=== PATIENT | female | born 1980 | race Caucasian/White ===

== ENCOUNTER → 2020-12-04 12:16 | Outpatient (BNVA) | payer SELFPAY | PROVIDERS: Family Provider Family Medicine; Visit Provider Nurse Practitioner Family | DX: J44.9 Chronic obstructive pulmonary disease, unspecified (principal); I10 Essential (primary) hypertension; Z13.6 Encounter for screening for cardiovascular disorders | CPT/HCPCS: 80053; 80061; 82947; 83036 ==

== ENCOUNTER → 2021-08-06 16:49 | Outpatient (BNVA) | payer OTHER, SELFPAY | PROVIDERS: Family Provider Family Medicine; Visit Provider Family Medicine | DX: R05.9 Cough, unspecified (principal); Z20.822 Contact with and (suspected) exposure to COVID-19 | CPT/HCPCS: 87635 ==

== ENCOUNTER → 2021-08-19 11:57 | Outpatient (BNVA) | payer SELFPAY | PROVIDERS: Family Provider Family Medicine; Visit Provider Nurse Practitioner Family | DX: J35.8 Other chronic diseases of tonsils and adenoids (principal); J02.9 Acute pharyngitis, unspecified | CPT/HCPCS: 87070 ==

== ENCOUNTER 2022-01-13 20:23 | Emergency (ER) | payer MEDICAID, SELFPAY ==
[2022-01-13 20:34] VITALS: BP 145/89; PULSE 99; RESP 20; TEMP 36.7; O2SAT 97; BMI 44.8
--- NOTE | 2022-01-13 20:56 | ED_ITS ---
HPI - Allergic Reaction General: Chief complaint: Allergic Reaction Stated complaint: swelling in throat Time Seen by Provider: 01/13/22 20:47 Source: patient Mode of arrival: ambulatory Limitations: no limitations History of Present Illness: HPI narrative: Patient is a 41-year-old female presents to ED today with a complaint of a possible allergic reaction. Patient tells me when she woke this morning she felt like her bottom lip was swollen. She states since then she feels like she has swelling to the inside of her mouth, cheeks, and tongue. She states she is not having any difficulty breathing. She is not having any difficulty speaking, eating, swallowing. Patient has continued to eat and drink normally throughout the day. She feels like the inside of her mouth is itchy and feels like she has hives on her cheeks. She cannot think of anything abnormal that she ate or drink or could have possibly been exposed to. She took Benadryl at around 3pm but didn't notice any results. MD complaint: allergic reaction and facial swelling Onset (ago): hour(s) Exposure: unknown Associated symptoms: Deny abdominal pain, dizziness, nausea or vomiting Severity: mild Treatment prior to arrival: benadryl Previous Allergic Reaction History: none Review of Systems Const: Denies: fever(s), chills, body aches, fatigue or malaise Eyes: Denies: change in vision, blurry vision, blind spots, photophobia, floaters or seeing flashes ENMT: Reports: swelling of lips/tongue; Denies: throat pain, uvular edema, enlarged tonsils, odynophagia, ear or mastoid pain, change in hearing, nasal discharge, nasal congestion, post nasal drip or sinus pain Card: Denies: chest pain, palpitations, lightheadedness, syncope or pre- syncope Resp: Denies: dyspnea, productive cough, wheezing, hemoptysis or chest congestion GI: Denies: abdominal pain, nausea or vomiting Musc: Denies: neck pain, back pain, extremity pain or joint pain Skin/Breast: Denies: rash Neuro: Denies: headache(s), numbness in extremities, weakness in extremities, sensory changes or dizziness PFS ED PFSH: Medical History ADHD Anxiety and depression COPD (chronic obstructive pulmonary disease) Sarcoidosis Surgical History History of repair of ACL Hx of adenoidectomy Hx of tubal ligation Family History Grandmother Cancer Lymphoma Social History Smoking and tobacco status: current every day smoker (vape) Quit status (tobacco): has quit using tobacco Year quit tobacco: 2010 Former quit date comment: smoked PPD x 20 yrs Second hand smoke exposure: No Alcohol intake: never Household members: spouse and children service: No Current occupational status: employed History of recent travel: No Current gender identity: Female Special junito needs: No Agree to transfusion: Yes Physical Exam Const: COMMON NORMALS: no acute distress, patient oriented x3, no limitations and alert GENERAL APPEARANCE: cooperative ORIENTATION/CONSCIOUSNESS: Yes awake, Yes oriented to person, Yes oriented to place and Yes oriented to time HENMT: COMMON NORMALS: normocephalic, atraumatic and Normal external nose present HEAD & SCALP: normal to inspection, normocephalic and atraumatic FACE & SINUS: normal facial exam NOSE: Normal external nose present MOUTH: lip normal, tongue normal (tongue piercing; I don't appreciate any obvious swelling), lip abnormal (minor swelling to lower lip; piercing present), Abnormal oral and palatal mucosa present (a few erythematous lesions to bilateral buccal mucosa) and other (floor of mouth is soft and non-elevated ); no audible dysphonia, no drooling and no muffled voice THROAT: posterior oropharynx normal, tonsils normal and uvula midline; no uvular edema Eye: GENERAL EYE: appearance normal, both eyes and all related structures Neck/C-Spine: COMMON NORMALS: full ROM and no lymphadenopathy GENERAL: Yes normal visual inspection, No anterior neck swelling and No submandibular swelling Resp: COMMON NORMALS: normal respiratory effort and clear to auscultation bilaterally AUSCULTATION: clear to auscultation bilaterally Cardio: COMMON NORMALS: regular rate and regular rhythm RATE: regular rate RHYTHM: regular rhythm Extremity: COMMON NORMALS: normal to inspection Neuro: SEJAL COMA SCALE: document GCS findings Sejal coma scale eye o pening: Spontaneous [place] coma scale verbal response: Orientated Sejal coma scale motor response: Obey commands [place] coma scale total score: 15 COMMON NORMALS: patient oriented x3 and CN's II-XII intact bilaterally SENSORIUM/ORIENTATION: Yes alert, Yes oriented to person, Yes oriented to place and Yes oriented to time Skin: COMMON NORMALS: no rashes or lesions noted GENERAL SKIN EXAM: no rashes or lesions noted Course Vital Signs: Vital signs: Vital Signs Temperature 98.0 F 01/13/22 20:34 Pulse Rate 99 01/13/22 20:34 Respiratory Rate 16 01/13/22 23:00 Blood Pressure 145/89 01/13/22 20:34 Pulse Oximetry 97 01/13/22 20:34 MDM - Allergic Reaction Medical Decision Making On physical exam patient does not have any obvious intraoral/posterior pharynx/tongue swelling. She does have some very mild swelling to her bottom lower lip. Patient is not having any issues speaking or controlling her saliva. She is eating and drinking in the room without difficulty. Patient does not have any induration, crepitus, or swelling to her neck or submandibular regions. The floor of her mouth is soft and non-elevated. At this point I do not have any suspicion for severe angioedema, airway compromise, Turner's angina/deep space neck infection, [employer], retropharyngeal abscess, or any other emergent complaint at this time. Strict return to ED precautions were verbally given to patient along with her partner who both verbalized understanding. Discharge Plan Discharge Patient Disposition: Home Clinical Impression: Allergic reaction Qualifiers: Encounter type: initial encounter Qualified Code(s): T78.40XA - Allergy, unspecified, initial encounter Condition: Stable Prescriptions: No Action fluticasone propion-salmeterol [Advair Diskus] 500-50 mcg/dose blister with device See Rx Instructions .ROUTE .COMPLEX Qty: 60 3RF Dose Instruction: INHALE 1 PUFF BY MOUTH EVERY TWELVE HOURS Rx Instructions: INHALE 1 PUFF BY MOUTH EVERY TWELVE HOURS albuterol sulfate [ProAir HFA] 90 mcg/actuation HFA aerosol inhaler See Rx Instructions .ROUTE .COMPLEX Qty: 8.5 3RF Dose Instruction: INHALE TWO PUFFS BY MOUTH EVERY 6 HOURS NEEDED SHORTNESS OF BREATH OR wheezing. Rx Instructions: INHALE TWO PUFFS BY MOUTH EVERY 6 HOURS NEEDED SHORTNESS OF BREATH OR wheezing. furosemide 20 mg tablet See Rx Instructions .ROUTE .COMPLEX Qty: 30 3RF Dose Instruction: TAKE ONE TABLET BY MOUTH DAILY NEEDED FOR EDEMA. Rx Instructions: TAKE ONE TABLET BY MOUTH DAILY NEEDED FOR EDEMA. potassium chloride 10 mEq capsule, extended release See Rx Instructions .ROUTE .COMPLEX Qty: 30 3RF Dose Instruction: TAKE ONE CAPSULE BY MOUTH DAILY (take with lasix) Rx Instructions: TAKE ONE CAPSULE BY MOUTH DAILY (take with lasix) Spiriva with HandiHaler 18 mcg capsule, w/inhalation device 1 cap inhalation DAILY Qty: 30 5RF Rx Instructions: puncture 1 cap using device; one dose = 2 inhalations dextroamphetamine-amphetamine [Adderall XR] 25 mg capsule,extended release 24hr 25 mg PO QAM 30 Days Qty: 30 0RF Discharge Orders: Discharge ED (Routine); Ordered 01/13/22 Ordered By: Paloma Rodriges Activity Restrictions/Additional Instructions: As we discussed you need to monitor symptoms closely at home. Return to the emergency department immediately for any trouble swallowing, trouble controlling your saliva/secretions, difficulty breathing, severe neck swelling, or any other concerns you may have. Coding Level of Care Code ED Progress Worker for Cadeng Fwd Exam Comprehensive
[2022-01-13] MEDS: diphenhydrAMINE 50 mg/mL SDV 1mL IVP (22:07)
[2022-01-13] MEDS: famotidine 20 mg/2 mL INJ 40 MG IVP (22:07)
[2022-01-13 23:00] VITALS: RESP 16
== END 2022-01-13 23:01 | disposition home or self-care (01) ==
PROVIDERS: Emergency Provider Physician Assistant
DX: T78.40XA Allergy, unspecified, initial encounter (principal); F90.9 Attention-deficit hyperactivity disorder, unspecified type; J44.9 Chronic obstructive pulmonary disease, unspecified; F32.A Depression, unspecified; Z87.891 Personal history of nicotine dependence
CPT/HCPCS: 96374; 96375; 99283; J1200; J2930; J3490

== ENCOUNTER → 2022-09-17 10:42 | Outpatient (BNVA) | payer MEDICAID, SELFPAY | PROVIDERS: PCP Family Medicine; Visit Provider Anesthesiology Pain Medicine | DX: M54.16 Radiculopathy, lumbar region (principal) | CPT/HCPCS: 72110 ==

== ENCOUNTER 2022-12-07 06:19 | Outpatient (CLI) | payer MEDICAID, SELFPAY ==
--- NOTE | 2022-12-07 07:00 | CT_ITS ---
WS: [id number] CT LUMBAR SPINE, noncontrast. HISTORY: M54.42 - Lumbago with sciatica, left side TECHNIQUE: Contiguous 2.5 mm axial imaging are performed. Sagittal and coronal reformats are submitte d and reviewed. All CT scans at [facility] use at least one of these dose optimization techni ques: automated exposure control; mA and/or kV adjustment per patient size (includes targeted exams w here dose is matched to clinical indication); or iterative reconstruction. IV contrast: None DLP: 1447.06 mGy.cm COMPARISON: Prior radiograph 09/17/2022 Mild anterolisthesis of L4 by 3.6 mm. Disc spaces and vertebral body heights are normally maintained. No fracture. No pars defects. L1-2: Mild disc bulging. No stenosis. L2-3: Mild annular disc bulging. No stenosis. L3-4: Mild annular disc bulging. No stenosis. L4-5: Mild annular disc bulging with a shallow RIGHT subarticular disc protrusion encroaching upon th e RIGHT traversing L5 nerve root. There is additional moderate increased soft tissue in the region of the ligamentum flavum along with several foci of air adjacent to the RIGHT facet joint. There is air bilaterally but greatest on the RIGHT in the facet joints. Mild widening of the facet joints with hy pertrophic bone formation and fragmentation. There is moderate central with bilateral subarticular re cess and RIGHT foraminal stenosis. Mild LEFT foraminal stenosis. Most significant encroachment upon t he RIGHT L5 nerve root. L5-S1: Mild disc bulging with a central shallow disc protrusion contacting the ventral thecal sac. No significant stenosis. Mild facet joint arthritis. Bilateral nonobstructing renal calculi. Largest measures approximately 5 mm in the LEFT kidney. CT/CT lumbar spine wo con* [id number] IMPRESSION: 1. L4 anterolisthesis by 3.6 mm. Facet joint arthritis and mild widening at L4 -5. 2. Annular disc bulge with a shallow RIGHT subarticular disc protrusion at L4- 5. Most significant contact on the RIGHT traversing L5 nerve root. Prominent so ft tissue hypertrophy related facet joint arthritis and ligamentum flavum hyper trophy with foci of degenerative air involving the RIGHT L4-5 facet joint and c ontributing to the stenosis. Differential also includes a facet joint cyst cont ributing to the stenosis and contacting the RIGHT lateral thecal sac at L4-5. 3. No fractures. 4. Shallow central disc protrusion L5-S1.
== END 2022-12-07 06:20 | disposition home or self-care (01) ==
LOC: RAD 06:20
PROVIDERS: PCP Family Medicine; Visit Provider Anesthesiology Pain Medicine
DX: M51.26 Other intervertebral disc displacement, lumbar region (principal); M51.27 Other intervertebral disc displacement, lumbosacral region; M54.42 Lumbago with sciatica, left side; G89.29 Other chronic pain
CPT/HCPCS: 72131

== ENCOUNTER → 2022-12-14 10:07 | Outpatient (BNVA) | payer MEDICAID, SELFPAY | PROVIDERS: PCP Family Medicine; Visit Provider Nurse Practitioner Family | DX: J02.9 Acute pharyngitis, unspecified (principal); R05.9 Cough, unspecified | CPT/HCPCS: 87071 ==

== ENCOUNTER 2023-02-04 09:48 | Emergency (ER) | payer MEDICAID, SELFPAY ==
[2023-02-04 09:53] VITALS: BP 168/100; PULSE 111; RESP 16; TEMP 36.2; O2SAT 97; BMI 44.9
[2023-02-04 10:01] LABS: Glucose Point of Care 90 mg/dL (70-110)
--- NOTE | 2023-02-04 10:27 | ED_ITS ---
HPI - Neuro Symptoms/Deficit General: Chief Complaint: Neuro Symptoms/Deficit Stated Complaint: possible stroke Time Seen by Provider: 02/04/23 10:19 Source: patient Mode of arrival: ambulatory History of Present Illness: 42-year-old female presents to the emergency room reporting left arm and left face numbness. Patient states she got up around 330 or 4 this morning she took a drink and felt a bubble sensation in her chest pain began to radiate in the chest and then over the whole body she states she felt numb in her hands bilaterally turned blue. For a moment she felt like she was going to pass out she states she had trouble keeping her thoughts straight. This episode lasted for approximately 5 minutes and resolved spontaneously. She is the only residual symptom she is having now is her left face and arm she states feel numb and the left side of her body feels colder than the right. She is not having any chest pain at this time. Time: 09:53 Last Observed Normal: 03:30 Location: left face and left arm History of same: No Severity: mild Quality: numb Relieving factors: none Exacerbating factors: none Context: sudden onset Associated symptoms: Deny chest pain, cough, diaphoresis, fevers/chills, headache(s), anorexia, malaise, nausea, seizures, short of breath, syncope, tingling, vertigo, vomiting or weakness Treatments Prior to Arrival: none Review of Systems Const: Denies: fever(s), chills, fatigue, malaise or diaphoresis ENMT: Denies: throat pain, ear or mastoid pain, nasal discharge or nasal congestion Card: Denies: chest pain, palpitations, irregular heart rhythm, edema or syncope Resp: Denies: dyspnea, productive cough or non-productive cough GI: Denies: abdominal pain, nausea or vomiting : Denies: flank pain, difficulty voiding, dysuria, urinary frequency or urinary urgency Skin/Breast: Denies: rash or pruritus Neuro: Denies: headache(s) or vertigo PFSH ED PFSH: Medical History ADHD Anxiety and depression COPD (chronic obstructive pulmonary disease) Sarcoidosis Surgical History History of repair of ACL Hx of adenoidectomy Hx of tubal ligation Family History Grandmother Cancer Lymphoma Social History Smoking and tobacco status: former smoker Quit status (tobacco): has quit using tobacco Year quit tobacco: 2010 Former quit date comment: smoked PPD x 20 yrs Second hand smoke exposure: No Alcohol intake: former Substance/Drug Use: never Household members: spouse and children service: No Current occupational status: employed Current gender identity: Female Special junito needs: No Agree to transfusion: Yes NIH stroke score NIHSS: Level Of Consciousness - 1a: 0 Level Of Consciousness Questions - 1b: Both Correct Level Of Consciousness Commands - 1c: Both Correct Best Gaze - 2: Normal Visual Ríos - 3: No Visual Loss Facial Palsy - 4: Normal Motor Arm Right - 5: No Drift Motor Arm Left - 5: No Drift Motor Leg Right - 6: No Drift Motor Leg Left - 6: No Drift Limb Ataxia - 7: Absent Sensory - 8: Mild To Moderate Loss Best Language - 9: No Aphasia Dysarthia - 10: Normal Extinction And Inattention - 11: 0 Score: Total Score: 1 Physical Exam Const: GENERAL APPEARANCE: cooperative and comfortable ORIENTATION/CONSCIOUSNESS: Yes awake, Yes oriented to person, Yes oriented to place and Yes oriented to time HENMT: COMMON NORMALS: normocephalic, atraumatic and hearing grossly normal bilaterally HEAD & SCALP: normocephalic and atraumatic Resp: COMMON NORMALS: normal respiratory effort, No retractions, No use of ac cessory muscles and clear to auscultation bilaterally AUSCULTATION: clear to auscultation bilaterally Cardio: COMMON NORMALS: regular rate, regular rhythm and No murmurs present (Cardio) RATE: regular rate RHYTHM: regular rhythm GI: COMMON NORMALS: Soft to palpation and No hepatosplenomegaly present AUSCULTATION: Yes normoactive bowel sounds PALPATION: Yes Soft to palpation, No Tenderness to palpation present (GI), No Guarding due to palpation present ( GI) and Yes No hepatosplenomegaly present Extremity: COMMON NORMALS: normal to inspection, capillary refill normal, no clubbing, cyanosis or edema, no calf tenderness and no pedal edema Neuro: SENSORIUM/ORIENTATION: Yes oriented to person, Yes oriented to place and Yes oriented to time Skin: COMMON NORMALS: no rashes or lesions noted GENERAL SKIN EXAM: no rashes or lesions noted Course Vital Signs: Vital signs: Vital Signs Temperature 97.1 F L 02/04/23 09:53 Pulse Rate 111 H 02/04/23 09:53 Respiratory Rate 16 02/04/23 09:53 Blood Pressure 150/103 02/04/23 13:37 Pulse Oximetry 97 02/04/23 09:53 Oxygen Delivery Me thod Room Air 02/04/23 09:53 MDM - Neuro Symptoms/Deficit Medical Decision Making Patient is a stroke score of 1 at most. And the alteration in sensation seems to be somewhat varied. Has no ataxia [id number] rapid alternating to the fingers all normal. I suspect some of the alteration in sensation in the left arm may indeed be mild cervical radicular issue. CT of the head was negative no other findings. Her description of the chest discomfort seems to be more GI related to begin after she was swallowing something resolved within a few minutes. Remainder of her tests is unremarkable including head CT. We will d ischarge patient home started on Plavix aspirin atorvastatin set up for outpatient echo carotid MRI of the head with and without and a Holter monitor return if has any further problems. Medical Records I reviewed the patient's medical records. Lab Data I reviewed the patient's lab results. 02/04/23 12:03 02/04/23 12:[address] 02/04/23 10:31 IMPRESSION: 1. No evidence of intracranial hemorrhage or mass effect. 2. No acute intracranial findings. Notified Feng Truong DO at 02/04/2023 10:50 AM. Chest X-Ray 02/04/23 11:30 IMPRESSION: 1. Negative chest. Laboratory Results WBC 9.8 10^3/uL (4.0-10.0) 02/04/23 12:03 RBC 5.05 10^6/uL (4.1-5.3) 02/04/23 12:03 Hgb 13.4 g/dL (11.5-15.3) 02/04/23 12:03 Hct 43.1 % (37.0-47.0) 02/04/23 12:03 MCV 85.3 fl (81-99) 02/04/23 12:03 MCH 26.5 pg (28.0-34.0) L 02/04/23 12:03 MCHC 31.1 g/dL (30.0-36.0) 02/04/23 12:03 RDW 15.5 % (12.1-15.1) H 02/04/23 12:03 Plt Count 443 10^3/cmm (130-400) H 02/04/23 12:03 MPV 8.6 fL (7.4-10.4) 02/04/23 12:03 Neut % (Auto) 65.6 % 02/04/23 12:03 Lymph % (Auto) 24.4 % 02/04/23 12:03 [place] % (Auto) 5.0 % 02/04/23 12:03 Eos % (Auto) 3.9 % 02/04/23 12:03 Baso % (Auto) 0.8 % 02/04/23 12:03 Neut # (Auto) 6.44 10^3/uL (1.8-7.7) 02/04/23 12:03 Lymph # (Auto) 2.4 10^3/uL (0.8-4.8) 02/04/23 12:03 [place] # (Auto) 0.5 10^3/uL (0.2-0.9) 02/04/23 12:03 Eos # (Auto) 0.4 10^3/uL (0.0-0.8) 02/04/23 12:03 Baso # (Auto) 0.1 10^3/uL (0.0-0.1) 02/04/23 12:03 Nucleated RBC % (auto) 0 % 02/04/23 12:03 Nucleated RBCs # 0.0 /100WBC 02/04/23 12:03 Sodium 134 mmol/L (136-145) L 02/04/23 12:03 Potassium 4.1 mmol/L (3.5-5.1) 02/04/23 12:03 Chloride 98 mmol/L (98-107) 02/04/23 12:03 Carbon Dioxide 24 mmol/L (22-29) 02/04/23 12:03 Anion Gap 16.1 (5-19) 02/04/23 12:03 BUN 12 mg/dL (6-20) 02/04/23 12:03 Creatinine 0.7 mg/dL (0.5-0.9) 02/04/23 12:03 GFR Calculation 91.3 mL/min (90-130) 02/04/23 12:03 Glucose 82 mg/dL (65-115) 02/04/23 12:03 POC Glucose 90 mg/dL (70-110) 02/04/23 09:57 Calculated Osmolality 277 mOsm/kg (285-295) L 02/04/23 12:03 Calcium 9.3 mg/dL (8.5-10.5) 02/04/23 12:03 Magnesium 2.1 mg/dL (1.7-2.3) 02/04/23 12:03 Total Bilirubin 0.2 mg/dL (0.15-1.2) 02/04/23 12:03 AST 12 U/L (0-32) 02/04/23 12:03 ALT 11 U/L (0-33) 02/04/23 12:03 Alkaline Phosphatase 80 U/L (35-105) 02/04/23 12:03 Total Protein 7.5 g/dL (6.6-8.7) 02/04/23 12:03 Albumin 4.2 g/dL (3.5-5.2) 02/04/23 12:03 Globulin 3.3 g/dL (1.3-4.6) 02/04/23 12:03 Urine Color Yellow (Yellow) 02/04/23 13:20 Urine Appearance Clear (CLEAR) 02/04/23 13:20 Urine pH 7 (5-7) 02/04/23 13:20 Ur Specific [place] 1.015 (1.005-1.030) 02/04/23 13:20 Urine Protein Neg (Negative) 02/04/23 13:20 Urine Glucose (UA) Norm (Normal) 02/04/23 13:20 Urine Ketones Negative (Negative) 02/04/23 13:20 Urine Blood Neg (Negative) 02/04/23 13:20 Urine Nitrate Negative (Negative) 02/04/23 13:20 Urine Bilirubin Neg (Negative) 02/04/23 13:20 Urine Urobilinogen Neg mg/dL (Negative) 02/04/23 13:20 Ur Leukocyte Esterase Negative (Negative) 02/04/23 13:20 Discharge Plan Discharge Patient Disposition: Home Clinical Impression: Transient cerebral ischemia Condition: Stable Prescriptions: New clopidogrel 75 mg tablet 75 mg PO DAILY Qty: 30 0RF aspirin 81 mg tablet,delayed release (DR/EC) 81 mg PO DAILY Qty: 30 0RF atorvastatin 40 mg tablet 40 mg PO DAILY Qty: 30 0RF No Action (DME) Neb machine See Rx Instructions .Route .MEDSUPPLY Qty: 1 0RF Rx Instructions: As directed albuterol sulfate [ProAir HFA] 90 mcg/actuation HFA aerosol inhaler See Rx Instructions .ROUTE .COMPLEX Qty: 8.5 3RF Dose Instruction: INHALE TWO PUFFS BY MOUTH EVERY 6 HOURS NEEDED SHORTNESS OF BREATH OR FOR WHEEZING. Rx Instructions: INHALE TWO PUFFS BY MOUTH EVERY 6 HOURS NEEDED SHORTNESS OF BREATH OR FOR WHEEZING. ipratropium-albuterol 0.5 mg-3 mg(2.5 mg base)/3 mL solution for nebulization 3 ml inhalation Q8H PRN (Reason: wheezing) Qty: 180 0RF ibuprofen 200 mg tablet 200 mg PO Q6H PRN (Reason: Pain) acetaminophen [Tylenol Extra Strength] 500 mg tablet 500 mg PO Q6H PRN (Reason: Pain) naproxen 250 mg tablet 250 mg PO BID PRN (Reason: Pain) dextroamphetamine-amphetamine 30 mg capsule,extended release 24hr 30 mg PO DAILY 30 Days Qty: 30 0RF cetirizine [All Day Allergy (cetirizine)] 10 mg tablet 10 mg PO DAILY PRN (Reason: allergy symptoms) Qty: 90 2RF Spiriva with HandiHaler 18 mcg capsule, w/inhalation device See Rx Instructions .ROUTE .COMPLEX Qty: 30 5RF Dose Instruction: INHALE THE CONTENTS OF ONE CAPSULE VIA HANDIHELD DAILY. (PUNCTURE ONE CAPSULE USING DEVICE; ONE DOSE = 2 INHALATIONS). Rx Instructions: INHALE THE CONTENTS OF ONE CAPSULE VIA HANDIHELD DAILY. (PUNCTURE ONE CAPSULE USING DEVICE; ONE DOSE = 2 INHALATIONS). albuterol sulfate 2.5 mg /3 mL (0.083 %) solution for nebulization See Rx Instructions .ROUTE .COMPLEX Qty: 180 3RF Dose Instruction: INHALE CONTENTS OF ONE VIAL VIA NEBULIZER FOUR TIMES DAILY NEEDED S HORTNESS OF BREATH OR FOR WHEEZING. Rx Instructions: INHALE CONTENTS OF ONE VIAL VIA NEBULIZER FOUR TIMES DAILY NEEDED SHORTNESS OF BREATH OR FOR WHEEZING. fluticasone propion-salmeterol [Advair Diskus] 500-50 mcg/dose blister with device See Rx Instructions .ROUTE .COMPLEX Qty: 60 3RF Hold Instructions: try trelegy Dose Instruction: INHALE 1 PUFF BY MOUTH EVERY TWELVE HOURS. Rx Instructions: INHALE 1 PUFF BY MOUTH EVERY TWELVE HOURS. aspirin 325 mg Tablet 325 mg PO ONCE potassium chloride 10 mEq capsule, extended release 10 meq PO DAILY PRN (Reason: with lasix) furosemide 20 mg tablet 20 mg PO DAILY PRN (Reason: Edema) Discharge Orders: Discharge ED (Routine); Ordered 02/04/23 Ordered By: Feng Truong Referrals: Kasia Orellana MD [Primary Care Provider] - Discharge Diet: Usual diet Discharge Activity: Increase activity as tolerated Patient Instructions: Opioid Safety, Pain Management Activity Restrictions/Additional Instructions: You were seen today for a transient episode of left-sided weakness. Your stroke test screening did not show significant deficits. CT of the head was negative EKG was normal. Recommend that you start taking baby aspirin along with Plavix and atorvastatin daily we will set you up for outpatient testing to further evaluate return if you have change in symptoms. Coding Level of Care Code ED Laboratory Apparatus Glass Blower for Paul Bonilla
--- NOTE | 2023-02-04 10:31 | CT_ITS ---
WS: [id number] CT HEAD TECHNIQUE: Noncontrast CT of the head obtained from the skullbase to the vertex. Patient unable to re move earrings and eyebrow piercing CLINICAL INFORMATION: STROKE PROTOCOL COMPARISON: 2007 DLP: 1098 mgy/cm All CT scans at [facility] use at least one of these dose optimization techniques: automated e xposure control; mA and/or kV adjustment per patient size (includes targeted exams where dose is matc hed to clinical indication); or iterative reconstruction. FINDINGS: No evidence of intracranial hemorrhage or mass effect. Ventricular system and basal cisterns are barker nt. No extra-axial fluid collections. No evidence of mass or mass effect. Normal landers-white differen tiation. Paranasal sinuses and mastoid air cells are well aerated. .Normal visualized soft tissues. CT/CT head thrombolytic [id number] IMPRESSION: 1. No evidence of intracranial hemorrhage or mass effect. 2. No acute intracranial findings. Notified Feng Truong DO at 02/04/2023 10:50 AM.
[2023-02-04 10:43] VITALS: BP 183/130
--- NOTE | 2023-02-04 11:30 | ECG_ITS ---
[facility] Test Date: 2023-02-04 Pat Name: Dionne Elliott Department: Room: Gender: Female Filter Filler: : 1980 Requested By: Feng Silva Order Number: [id number] Zulema MD: Murali Pepper M.D. Measurements Intervals [place] Rate: 95 P: 56 CO: 144 QRS: 41 QRSD: 90 T: 35 QT: 368 QTc: 464 Interpretive Statements SINUS RHYTHM POSSIBLE LEFT ATRIAL ENLARGEMENT [-0.1mV P-WAVE IN V1/V2] NONSPECIFIC T-WAVE ABNORMALITY Compared to ECG 10/13/2018 22:55:22 T-wave abnormality now present Sinus tachycardia no longer present Electronically Signed On 02-04-2023 16:14:56 CDT by Murali Pepper M.D. [id number]
--- NOTE | 2023-02-04 11:30 | XR_ITS ---
WS: [id number] Exam: XR chest 1V portable [id number] Date/Time of Exam: 02/04/2023 11:30 AM Reason For Exam: dyspnea/cough Comparison 10/13/2018. The lungs are clear and fully inflated. Normal cardiomediastinal silhouette. Regional bony elements a ppear normal. XR/XR chest 1V portable [id number] IMPRESSION: 1. Negative chest.
[2023-02-04 12:10] LABS: Basophils # 0.1 10^3/uL (0.0-0.1); Basophils % 0.8 %; Eosinophils # 0.4 10^3/uL (0.0-0.8); Eosinophils % 3.9 %; Hematocrit 43.1 % (37.0-47.0); Hemoglobin 13.4 g/dL (11.5-15.3); Lymphocytes # 2.4 10^3/uL (0.8-4.8); Lymphocytes % 24.4 %; Mean Corpuscular HGB Conc 31.1 g/dL (30.0-36.0); Mean Corpuscular Hemoglobin 26.5 pg (28.0-34.0); Mean Corpuscular Volume 85.3 fl (81-99); Mean Platelet Volume 8.6 fL (7.4-10.4); Monocytes # 0.5 10^3/uL (0.2-0.9); Neutrophils # 6.44 10^3/uL (1.8-7.7); Neutrophils % 65.6 %; Nucleated Red Blood Cells % 0 %; Platelet Count 443 10^3/cmm (130-400); Red Blood Count 5.05 10^6/uL (4.1-5.3); Red Cell Distribution Width 15.5 % (12.1-15.1); White Blood Count 9.8 10^3/uL (4.0-10.0)
[2023-02-04 12:16] VITALS: BP 141/101
[2023-02-04 12:28] LABS: Alanine Aminotransferase 11 U/L (0-33); Albumin Level 4.2 g/dL (3.5-5.2); Alkaline Phosphatase 80 U/L (35-105); Anion Gap 16.1 (5-19); Aspartate Amino Transferase 12 U/L (0-32); Blood Urea Nitrogen 12 mg/dL (6-20); Calcium 9.3 mg/dL (8.5-10.5); Carbon Dioxide 24 mmol/L (22-29); Chloride 98 mmol/L (98-107); Globulin 3.3 g/dL (1.3-4.6); Glomerular Filtration Rate 91.3 mL/min (90-130); Glucose 82 mg/dL (65-115); Magnesium 2.1 mg/dL (1.7-2.3); Osmolality Calculated 277 mOsm/kg (285-295); Potassium 4.1 mmol/L (3.5-5.1); Sodium 134 mmol/L (136-145); Total Bilirubin 0.2 mg/dL (0.15-1.2); Total Protein 7.5 g/dL (6.6-8.7)
[2023-02-04 13:37] VITALS: BP 150/103
[2023-02-04 13:37] LABS: Add Urine Microscopic? NO; Charge for UA Resulting for Rev
[2023-02-04 13:50] LABS: Bilirubin Urine Neg (Negative); Blood Urine Neg (Negative); Glucose Urine UA Norm (Normal); Ketones Urine Negative (Negative); Leukocyte Esterase Urine Negative (Negative); Nitrate Urine Negative (Negative); Protein Urine Neg (Negative); Specific Gravity, Urine 1.015 (1.005-1.030); Urine Appearance Clear (CLEAR); Urine Color Yellow (Yellow); Urobilinogen Urine Neg (Negative); pH Urine 7 (5-7)
--- NOTE | 2023-02-05 08:23 | DCPLANNER ---
Addendum entered by Maira Calle 03/16/23 08:56: Patient attended the MRI, the echo, the carotid and the appointment at [facility]. Addendum entered by Maira Calle 02/10/23 10:58: Patient has an outpatient MRI scheduled for February at 9:30 Patient has an outpatient echo scheduled for Sunday, March 12, 2023 at 1:45 Patient has a carotid duplex scheduled for Friday, March 10, 2023 at 3:30. Addendum entered by Maira Calle 02/05/23 09:34: Patient has a 48 hour halter monitor scheduled for February at 11:15 at [facility]. Original Note: assistant merchandise manager had message to schedule an outpatient MRI, echocardiogram, and carotid duplex for patient. assistant merchandise manager faxed signed order to centralized scheduling, who will call patient with appointment information. assistant merchandise manager had message to schedule an outpatient 48 hour halter monitor for patient. assistant merchandise manager faxed signed order to [facility], who will call patient with appointment information.
== END 2023-02-04 14:35 | disposition home or self-care (01) ==
PROVIDERS: Emergency Provider Family Medicine; PCP Family Medicine
DX: G45.9 Transient cerebral ischemic attack, unspecified (principal); J44.9 Chronic obstructive pulmonary disease, unspecified; Z87.891 Personal history of nicotine dependence
CPT/HCPCS: 36415; 36416; 70450; 71045; 80053; 81003; 82962; 83735; 85025; 93005; 99285

== ENCOUNTER 2023-03-10 15:50 | Outpatient (CLI) | payer MEDICAID, SELFPAY ==
--- NOTE | 2023-03-10 16:43 | USCV_ITS ---
Dionne Elliott Age: 42 Gender: F : 1980 Exam Date: 03/10/2023 17:09 Ordering Phys: Feng Truong DO Technologist: [place] [facility] [place]: tia Risk Factors: Previous Vascular Surgery: Right Brachial BP: / Left Brachial BP: / Right Left Velocity (cm/s) Spectral Plaque Velocity (cm/s) Spectral Plaque Syst/Diast Broadening Syst/Diast Broadening 99.40/ 27.20 Prox CCA 109.60/ 31.30 96.10/ 32.70 Mid CCA 110.40/ 34.70 82.70/ 29.80 Distal CCA 90.50 / 25.00 67.60/ 29.10 Prox ICA 74.90 / 21.70 107.70/45.00 Mid ICA 93.70 / 39.40 112.00/44.00 Distal ICA 116.60/ 49.70 97.10 ECA 81.10 1.13 ICA/CCA 1.06 Antegrade Vertebral Antegrade 53.90/ 16.60 cm/s 52.10/ 17.90 cm/s Tri Subclavian Tri 140.4 129.7 0 0 FINDINGS Comparison: none available. No significant elevation of systolic or diastolic velocities. Waveforms are normal. No significant amount of calcified plaque or intimal thickening identified. CONCLUSIONS Normal carotid doppler ultrasound. Dr. Estelita Henderson DO (Electronically Signed) Final Date: 11 March 2023 07:54 S
== END 2023-03-10 15:51 | disposition home or self-care (01) ==
PROVIDERS: PCP Family Medicine; Visit Provider Family Medicine
DX: G45.9 Transient cerebral ischemic attack, unspecified (principal)
CPT/HCPCS: 93880

== ENCOUNTER 2023-03-12 14:23 | Outpatient (CLI) | payer MEDICAID, SELFPAY ==
--- NOTE | 2023-03-12 | MR_ITS ---
WS: [id number] MRI HEAD WITH CONTRAST TECHNIQUE: Sagittal T1, T2 axial, T2 axial FLAIR, axial susceptibility weighted imaging, axial diffus ion weighted images, and coronal T2 images were obtained. Pre and post-T1 axial and post T1 coronal i mages. ADC and FSPGR images. CLINICAL INFORMATION: TIA COMPARISON: None. FINDINGS: No evidence of restricted diffusion to suggest acute ischemia. Ventricular system and basal cisterns are patent. Normal posterior fossa. Normal vascular flow voids at the skull base. No extra-axial flui d collections. No evidence of mass or mass effect. Minimal patchy periventricular white matter change s nonspecific in a patient this age but can be seen with hypertension, diabetes, and migraine headach es. One or 2 foci adjacent to the splenium corpus callosum can also be seen with demyelinating diseas e. No significant parenchymal volume loss. Normal posterior nasopharynx. Normal parapharyngeal fat. Mild mucosal thickening in the paranasal sinuses. Small retention cyst in the LEFT maxillary sinus. M astoid air cells well aerated. No hemosiderin on susceptibly weighted images. Normal optic chiasm and pituitary infundibulum. Normal cavernous sinuses and Meckel's cave. No abnormal gadolinium enhancement. Normal dural venous sinuses . MR/MR head wo/w con [id number] IMPRESSION: 1. No evidence of restricted diffusion to suggest acute ischemia. 2. A few tiny foci of T2 hyperintensity in the periventricular white matter no nspecific in a patient this age, a few in a pericallosal distribution. Findings are nonspecific but can be seen with hypertension, diabetes, migraine headache s, and demyelinating disease. 3. No abnormal gadolinium enhancement. 4. Normal optic chiasm and pituitary infundibulum. 5. Temporal lobes and hippocampal formations are normal in appearance. 6. No hemosiderin on the susceptibility weighted images. 7. No other acute findings.
[2023-03-12] MEDS: gadobenate dimeglumine 20 mL vial IV (15:13)
--- NOTE | 2023-03-12 15:30 | USCV_ITS ---
Dionne Elliott Age: 42 Gender: F : 1980 Exam Date: 03/12/2023 15:37 Ordering Phys: Feng Truong DO Technologist: Exam Location: [facility] [place]_ Indication: pedal edema BP: 135 / 90 HR: 114 Rhythm: Sinus Technical Quality: Adequate MEASUREMENTS (Male / Female) Normal Values 2D ECHO LV Diastolic Diameter PLAX 3.7 cm 4.2 - 5.9 / 3.9 - 5.3 cm LV Systolic Diameter PLAX 2.1 cm IVS Diastolic Thickness 1.3 cm 0.6 - 1.0 / 0.6 - 0.9 cm IVS Systolic Thickness 1.4 cm LVPW Diastolic Thickness 1.0 cm 0.6 - 1.0 / 0.6 - 0.9 cm LVPW Systolic Thickness 1.2 cm LVOT Diameter 2.0 cm LV Ejection Fraction 2D Teich 71.3 % LV Ejection Fraction MOD 2C 66.0 % LV Ejection Fraction 2C AL 66.0 % LA Diameter 3.2 cm IVC Diameter 2.0 cm M-MODE Aortic Annulus Diameter 3.3 cm LA Ao Ratio MM 1.0 MV E Point Septal Separation 0.7 cm DOPPLER AV Peak Velocity 153.0 cm/s LVOT Peak Velocity 118.0 cm/s AV Area Cont Eq vti 2.2 cm squared AV Area Cont Eq pk 2.4 cm squared MV Area PHT 5.0 cm squared Mitral E to A Ratio 0.8 MV E' Velocity 45.5 cm/s Mitral E to MV E' Ratio 5.3 Mitral E to LV E' Lateral Ratio 5.2 Mitral E to LV E' Septal Ratio 5.4 TR Peak Velocity 111.0 cm/s TR Peak Gradient 4.9 mmHg TV Peak E Velocity 78.0 cm/s Right Atrial Pressure 3.0 mmHg Pulmonary Artery Systolic Pressu 7.9 mmHg RV Acceleration Time 0.2 s FINDINGS Left Ventricle Left ventricle is normal in size. LV systolic function is normal with EF of 60 to 65%. No regional wall motion abnormalities are seen. Grade 1 diastolic dysfunction Right Ventricle Normal in size and function Right Atrium Normal in size Left Atrium Normal in size Mitral Valve Structurally normal mitral valve. Aortic Valve Structurally normal aortic valve. No significant stenosis or regurgitation seen. Tricuspid Valve Mild tricuspid regurgitation. Insufficient TR jet to calculate RVSP. Pulmonic Valve Not well-visualized Pericardium Normal Aorta Normal in size IVC Appears to be normal CONCLUSIONS LV systolic function is normal with EF of 60 to 65%. Grade 1 diastolic dysfunction Mild tricuspid regurgitation Compared to prior echocardiogram from 01/26/2018, no significant changes are seen Carlos Valladares MD (Electronically Signed) Final Date: 12 March 2023 16:42 S
== END 2023-03-12 14:24 | disposition home or self-care (01) ==
LOC: RAD 14:24
PROVIDERS: PCP Family Medicine; Visit Provider Family Medicine
DX: G45.9 Transient cerebral ischemic attack, unspecified (principal); R60.0 Localized edema; I07.1 Rheumatic tricuspid insufficiency
CPT/HCPCS: 70553; 93306; A9577

== ENCOUNTER 2023-12-19 07:13 | Emergency (ER) | payer MEDICAID, SELFPAY ==
--- NOTE | 2023-12-19 07:15 | XRR_ITS ---
PROCEDURE INFORMATION: Exam: XR Chest Exam date and time: 12/19/2023 7:25 AM Age: 42 years old Clinical indication: Shortness of breath; Additional info: Chest pain, dyspnea TECHNIQUE: Imaging protocol: Radiologic exam of the chest. Views: 1 view. COMPARISON: CR XR chest 1V portable [id number] 02/04/2023 12:03 PM FINDINGS: Lungs: Unremarkable. No consolidation. Pleural spaces: Unremarkable. No pleural effusion. No pneumothorax. Heart/Mediastinum: Unremarkable. No cardiomegaly. Bones/joints: Unremarkable. XR/XR chest 1V portable [id number] IMPRESSION: No acute findings.
[2023-12-19 07:17] VITALS: BMI 43.9
--- NOTE | 2023-12-19 07:18 | ECG_ITS ---
[facility] Test Date: 2023-12-19 Pat Name: Dionne Elliott Department: Room: Gender: Female Orthodontic Assistant: : 1980 Requested By: Gerardo Santoro Order Number: [id number] Zulema MD: Murali Pepper M.D. Measurements Intervals [place] Rate: 115 P: 74 HI: 131 QRS: 66 QRSD: 77 T: 56 QT: 314 QTc: 435 Interpretive Statements SINUS TACHYCARDIA POSSIBLE LEFT ATRIAL ENLARGEMENT [-0.1mV P-WAVE IN V1/V2] ABNORMAL RHYTHM ECG Compared to ECG 02/04/2023 12:00:21 Sinus rhythm no longer present T-wave abnormality no longer present Electronically Signed On 12-19-2023 10:24:55 CDT by Murali Pepper M.D. [id number]
[2023-12-19 07:19] VITALS: BP 124/94; PULSE 109; RESP 16; TEMP 36.7; O2SAT 97
[2023-12-19 07:58] LABS: Troponin(5th) Baseline 9 ng/L (0-10)
[2023-12-19] MEDS: ipratropium-albuterol 3 mL Neb INHALATION (08:01)
[2023-12-19 08:03] VITALS: PULSE 102; RESP 20; O2SAT 97
[2023-12-19] MEDS: dexamethasone 10 mg/mL INJ 20 MG IVP (08:03)
[2023-12-19 08:07] VITALS: PULSE 99
[2023-12-19 08:11] LABS: Alveolar-Arterial Oxygen Gradi 4.5 mmHg (5-10); Arterial Blood Gas Hematocrit 40.3 % (37-47); Base Excess ABG -3.5 mmol/L (-2.0-2.0); Blood Gas Allen Test Pos; Blood Gas Operator Identificat MONRO; Blood Gas Sample Site Radial, right; Blood Gas Sample Type Arterial; Carboxyhemoglobin 0.4 %THgb (0.4-20.1); HCO3 ABG 20.5 mmol/L (22-26); HGB O2 Sat 94.8 % (95-100); Ionized Calcium Level - ABG 1.3 mmol/L (1.1-1.4); Methemoglobin 0.5 % (0.4-1.5); Oxygen Device ROOM AIR; Oxygen Saturation ABG 95.7; PO2 ABG 74.7 mmHg (80.0-100.0); PO2 FiO2 Ratio Arterial Blood 0; Potassium Level - ABG 3.9 mmol/L (3.5-5.0); Total Hemoglobin 13.1 g/dL (12-16)
--- NOTE | 2023-12-19 08:20 | W.ED.SOB ---
HPI - SOB/Dyspnea General: Chief Complaint: Shortness of Breath/Dyspnea Stated Complaint: SOB / Chest pain Time Seen by Provider: 12/19/23 07:15 History of Present Illness: HPI Narrative: The patient presents with a chief complaint of difficulty breathing, which has been progressively worsening over the last two weeks. The patient has a known history of chronic obstructive pulmonary disease (COPD) and has experienced multiple exacerbations in the past, requiring hospital admissions. The patient denies any recent illnesses, fever, chills, or runny nose but reports an increase in shortness of breath and a cough that is common during COPD flare-ups. The patient's current COPD management includes the use of a nebulizer with albuterol, ipratropium bromide, and a steroid inhaler (Spiriva). Despite taking multiple breathing treatments recently, the patient has not experienced significant relief from their symptoms. The patient also reports chest pain, which is believed to be related to the effort of trying to breathe. Review of Systems General: Reports: 10 or more systems reviewed and unremarkable except in HPI and below PFSH ED PFSH: Medical History ADHD Anxiety and depression COPD (chronic obstructive pulmonary disease) Sarcoidosis Surgical History History of repair of ACL Hx of adenoidectomy Hx of tubal ligation Family History Grandmother Cancer Lymphoma Social History Smoking and tobacco/nicotine status: former use of tobacco/nicotine Quit status (tobacco/nicotine): has quit using Year quit tobacco: 2010 Former quit date comment: smoked PPD x 20 yrs Second hand smoke exposure: No Alcohol intake: former Substance/Drug Use: never Household members: spouse and children service: No Current occupational status: employed Current gender identity: Female Special junito needs: No Agree to transfusion: Yes Female Reproductive History: Date of last menstrual period: 11/23/23 Physical Exam Const: COMMON NORMALS: no acute distress, patient oriented x3, healthy appearing, alert and well nourished HENMT: COMMON NORMALS: normocephalic HEAD & SCALP: normocephalic Eye: COMMON NORMALS: EOMs intact bilaterally Neck/C-Spine: COMMON NORMALS: full ROM and supple Resp: EFFORT & INSPECTION: Yes tachypneic, Yes respiratory distress, Yes labored, Yes uses accessory muscles and Yes audible wheezes AUSCULTATION: wheezes expiratory wheezes and throughout and diminished lung sounds bilateral in the lower lung farley Cardio: COMMON NORMALS: regular rhythm, No gallops present (Cardio) and No murmurs present (Cardio) RATE: tachycardic RHYTHM: regular rhythm GI: COMMON NORMALS: Soft to palpation and non-tender PALPATION: Yes Soft to palpation Extremity: GENERAL: Yes normal exam except as noted Neuro: COMMON NORMALS: patient oriented x3 SENSORIUM/ORIENTATION: Yes alert Skin: COMMON NORMALS: no rashes or lesions noted GENERAL SKIN EXAM: no rashes or lesions noted Course Vital Signs: Vital signs: Vital Signs Temperature 98.1 F 12/19/23 07:19 Pulse Rate 99 12/19/23 08:07 Respiratory Rate 20 H 12/19/23 08:03 Blood Pressure 149/91 12/19/23 09:14 Pulse Oximetry 97 12/19/23 09:14 Oxygen Delivery Me thod Room Air 12/19/23 09:14 MDM - SOB/Dyspnea Medical Decision Making 42-year-old female presented to the emergency department for evaluation of shortness of breath. Patient has a history of COPD. She has had several exacerbations in the past. Based on today's evaluation laboratory results she did have some hypoxia initially. This resolved with breathing treatments and a Decadron shot. Encouraged the patient to follow-up with primary care physician to discuss continuing steroids versus adjustments to her COPD regimen. Etiology of shortness of breath on admission not entirely clear. Differential diagnosis includes COPD exacerbation, allergic reaction, anxiety, and viral illness. Patient discharged home in good condition. Return precautions discussed. Lab Data Labs/Radiology: Radiology Impressions Chest X-Ray 12/19/23 07:15 IMPRESSION: No acute findings. Laboratory Results Specimen Type Arterial 12/19/23 07:59 Sample Site Radial, right 12/19/23 07:59 ABG pH 7.40 (7.35-7.45) 12/19/23 07:59 ABG pCO2 33.0 mmHg (35-45) L 12/19/23 07:59 ABG pO2 74.7 mmHg (80.0-100.0) L 12/19/23 07:59 ABG PO2/FiO2 Ratio 0 12/19/23 07:59 ABG HCO3 20.5 mmol/L (22-26) L 12/19/23 07:59 ABG O2 Saturation 95.7 12/19/23 07:59 ABG Base Excess -3.5 mmol/L (-2.0-2.0) L 12/19/23 07:59 Matthew Test Pos 12/19/23 07:59 A-a O2 Gradient 4.5 mmHg (5-10) L 12/19/23 07:59 Hematocrit 40.3 % (37-47) 12/19/23 07:59 Hgb O2 Saturation 94.8 % (95-100) L 12/19/23 07:59 Carboxyhemoglobin 0.4 %THgb (0.4-20.1) 12/19/23 07:59 Methemoglobin 0.5 % (0.4-1.5) 12/19/23 07:59 Total Hemoglobin 13.1 g/dL (12-16) 12/19/23 07:59 Sodium 139.0 mmol/L (131-143) 12/19/23 07:59 Potassium 3.9 mmol/L (3.5-5.0) 12/19/23 07:59 Glucose 112.0 mg/dL (70-115) 12/19/23 07:59 Ionized Calcium 1.3 mmol/L (1.1-1.4) 12/19/23 07:59 O2 Delivery Device Room air 12/19/23 07:59 FiO2 21.0 % 12/19/23 07:59 System Administration Manager ID Monro 12/19/23 07:59 Troponin T Baseline 9 ng/L (0-10) 12/19/23 07:25 Influenza Type A Ag negative (Negative) 12/19/23 07:50 Influenza Type B Ag negative (Negative) 12/19/23 07:50 SARS-CoV-2 Ag (Rapid) negative (Negative) 12/19/23 07:50 All radiology interpretation(s) finalized by discharge ED provider radiology interpretation(s): Chest x-ray: No acute findings EKG Data EKG 1: EKG Interpretation Date: 12/19/23 EKG interpretation time: 07:25 Prior EKG tracings: not available for review Interpretation: Normal sinus rhythm with a rate of 115, [place] interval 131, QRS 77, QTc 382. No ST segment elevation or depression. ABG Data ABG Interpretation 1: ABG results: Compensated respiratory alkalosis with mild hypoxia Discharge Plan Discharge Patient Disposition: Home Clinical Impression: COPD with exacerbation Condition: Stable Prescriptions: No Action (DME) Neb machine See Rx Instructions .Route .MEDSUPPLY Qty: 1 0RF Rx Instructions: As directed ibuprofen 200 mg tablet 200 mg PO Q6H PRN (Reason: Pain) acetaminophen [Tylenol Extra Strength] 500 mg tablet 500 mg PO Q6H PRN (Reason: Pain) albuterol sulfate 2.5 mg /3 mL (0.083 %) solution for nebulization See Rx Instructions .ROUTE .COMPLEX Qty: 180 3RF Dose Instruction: INHALE CONTENTS OF ONE VIAL VIA NEBULIZER FOUR TIMES DAILY NEEDED SHORTNESS OF BREATH OR FOR WHEEZING. Rx Instructions: INHALE CONTENTS OF ONE VIAL VIA NEBULIZER FOUR TIMES DAILY NEEDED SHORTNESS OF BREATH OR FOR WHEEZING. fluticasone propion-salmeterol [Advair Diskus] 500-50 mcg/dose blister with device 1 inh inhalation Q12H Qty: 60 3RF Hold Instructions: try trelegy tiotropium bromide [Spiriva with HandiHaler] 18 mcg capsule, w/inhalation device See Rx Instructions .ROUTE .COMPLEX Qty: 30 5RF Dose Instruction: INHALE THE CONTENTS OF ONE CAPSULE VIA HANDIHELD DAILY. (PUNCTURE ONE CAPSULE USING DEVICE; ONE DOSE = 2 INHALATIONS). Rx Instructions: INHALE THE CONTENTS OF ONE CAPSULE VIA HANDIHELD DAILY. (PUNCTURE ONE CAPSULE USING DEVICE; ONE DOSE = 2 INHALATIONS). (DME) nebulizer mask and tubing See Rx Instructions .Route .MEDSUPPLY Qty: 1 0RF Rx Instructions: As directed albuterol sulfate [Ventolin HFA] 90 mcg/actuation HFA aerosol inhaler See Rx Instructions .ROUTE .COMPLEX Qty: 18 0RF Dose Instruction: INHALE TWO PUFFS BY MOUTH EVERY 6 HOURS NEEDED SHORTNESS OF BREATH OR FOR WHEEZING Rx Instructions: INHALE TWO PUFFS BY MOUTH EVERY 6 HOURS NEEDED SHORTNESS OF BREATH OR FOR WHEEZING ipratropium-albuterol 0.5 mg-3 mg(2.5 mg base)/3 mL solution for nebulization 3 ml inhalation Q8H PRN (Reason: wheezing) Qty: 180 0RF dextroamphetamine-amphetamine 30 mg capsule,extended release 24hr 30 mg PO DAILY 30 Days Qty: 30 0RF cetirizine [All Day Allergy (cetirizine)] 10 mg tablet 10 mg PO DAILY PRN (Reason: allergy symptoms) Qty: 90 2RF Discharge Orders: Discharge ED (Routine); Ordered 12/19/23 Ordered By: Gerardo Santoro Referrals: Kasia Orellana MD [Primary Care Provider] - Discharge Diet: Regular Discharge Activity: Resume usual activity Patient Instructions: Opioid Safety, Pain Management Coding Level of Care Code ED Costume Design Teacher for Paul Bonilla
[2023-12-19 08:22] VITALS: O2SAT 97
[2023-12-19 08:34] LABS: Influenza A by IFA negative (Negative); Influenza B by IFA negative (Negative)
[2023-12-19 08:36] LABS: SARS Covid-2 Antigen negative (Negative)
[2023-12-19 09:14] VITALS: BP 149/91; O2SAT 97
[2023-12-19 09:35] LABS: Troponin 5 2HR 8.39 ng/L (0-10)
[2023-12-19 09:40] LABS: Troponin 5 2HR Delta -0.61 ABS# (0-10)
== END 2023-12-19 09:36 | disposition home or self-care (01) ==
PROVIDERS: Emergency Provider General Practice; PCP Family Medicine
DX: J44.1 Chronic obstructive pulmonary disease with (acute) exacerbation (principal); Z11.52 Encounter for screening for COVID-19; Z87.891 Personal history of nicotine dependence
CPT/HCPCS: 36415; 36600; 71045; 80051; 82330; 82805; 84484; 87426; 87804; 93005; 94640; 94664; 96374; 99285; J1100

== ENCOUNTER → 2023-12-27 09:08 | Outpatient (BNVA) | payer MEDICAID, SELFPAY | PROVIDERS: PCP Family Medicine; Visit Provider Nurse Practitioner | DX: I10 Essential (primary) hypertension (principal); J44.9 Chronic obstructive pulmonary disease, unspecified; J45.909 Unspecified asthma, uncomplicated | CPT/HCPCS: 80053; 80061; 81000; 84443 ==

== ENCOUNTER → 2024-04-03 11:41 | Outpatient (BNVA) | payer MEDICAID, SELFPAY | PROVIDERS: PCP Nurse Practitioner; Visit Provider Nurse Practitioner | DX: I10 Essential (primary) hypertension (principal); J44.9 Chronic obstructive pulmonary disease, unspecified; E66.01 Morbid (severe) obesity due to excess calories; Z68.41 Body mass index [BMI] 40.0-44.9, adult; R00.0 Tachycardia, unspecified | CPT/HCPCS: 80048 ==

== ENCOUNTER → 2024-11-09 12:48 | Outpatient (BNVA) | payer MEDICAID, SELFPAY | PROVIDERS: PCP Family Medicine; Visit Provider Family Medicine | DX: I10 Essential (primary) hypertension (principal); F90.9 Attention-deficit hyperactivity disorder, unspecified type; R00.0 Tachycardia, unspecified; J44.9 Chronic obstructive pulmonary disease, unspecified; R60.9 Edema, unspecified; Z79.899 Other long term (current) drug therapy | CPT/HCPCS: 80053; 80061; 80307; 82306; 83036; 83735; 84443 ==

== ENCOUNTER → 2025-02-22 10:29 | Outpatient (BNVA) | payer SELFPAY | PROVIDERS: PCP Family Medicine; Visit Provider Family Medicine | DX: E55.9 Vitamin D deficiency, unspecified (principal) | CPT/HCPCS: 82306 ==

== ENCOUNTER → 2025-05-24 12:25 | Outpatient (BNVA) | payer SELFPAY | PROVIDERS: PCP Family Medicine; Visit Provider Family Medicine | DX: L81.9 Disorder of pigmentation, unspecified (principal) | CPT/HCPCS: 88305 ==

== ENCOUNTER → 2025-08-23 12:15 | Outpatient (BNVA) | payer SELFPAY | PROVIDERS: PCP Family Medicine; Visit Provider Nurse Practitioner Family | DX: J45.901 Unspecified asthma with (acute) exacerbation (principal) | CPT/HCPCS: 71046 ==

== ENCOUNTER → 2025-09-13 12:04 | Outpatient (BNVA) | payer SELFPAY | PROVIDERS: PCP Family Medicine; Visit Provider Family Medicine | DX: R60.9 Edema, unspecified (principal) | CPT/HCPCS: 80053; 83880; 84443 ==